=== PATIENT | female | born 1985 | race Caucasian/White ===

== ENCOUNTER 2017-01-26 08:31 | Emergency (ER) | payer BC ==
[2017-01-26 08:45] VITALS: BP 150/90; BMI 46.9
--- NOTE | 2017-01-26 09:16 | ED.ABDFE ---
HPI - Time seen Time seen: 09:13 - PCP Primary Care Physician: JAM - HPI Comment HPI Comment: GETTING WORSE. - Complaint Chief Complaint Doctors Comments: RLQ ABDOMINAL PAIN TIMES ONE DAY. PATIENT HAD CT DONE IN [facility]. VENTRAL HERNIA SEEN. PATIENT IS HURTING AREA OF THE HERNIA. NO FEVER. Chief Complaint:: PT C/O HAVING A BULGE TO HER LEFT LOWER QUAD AND THAT HER PRIMARY CARE HAS DONE A CT AND THINKS IT MAY BE A HERNIA.. PT HAS NOT GOT RESULTS AND C/O PAIN YESTERDAY MORNING.. - Nurses notes reviewed Nurses Notes Review: Yes - Source History Provided: Patient, Family Member - Mode of arrival Mode of Arrival: Ambulatory - Timing Onset of Chief Complaint: 01/25/17 Came on: Suddenly - Duration Duration: Days - Location Location: [facility] - Severity Severity: Moderate - Quality Quality: Sharp - Context Onset: Suddenly - Modifying Worsening Factors: Nothing Improving Factors: Nothing - Associated signs and symptoms Associated Signs and Symptoms: None PMH - PMH Past Medical History: No Past Medical History: Depression Past Surgical History: Yes Surgical History: , TELEPHONIC NURSE Surgery Past Surgical History Comment: C-SECTIONS TIMES 3, ENDOMETRIAL ABLATION..... - Family History History of Family Medical Conditions: No Family Medical History: Diabetes Mellitus - Social History Does patient currently use any type of tobacco product: No Have you used tobacco products in the last 12 months: No Type of Tobacco Use: None Does any household member use tobacco: No Alcohol Use: None Do you use any recreational Drugs:: No Lives With: Family Lives Where: Home - infectious screening In the last 2 months have you had wt loss of >10#?: NO Have you had fever, night sweats or hemotysis?: No Have you traveled outside the country in the last 6 months?: No Isolation: Standard ROS - Review of Systems Constitutional: No Symptoms Reported Eyes: No Symptoms Reported. negative: Eye Pain, Discharge ENTM: No Symptoms Reported. negative: Ear Pain, Nose Discharge, Nose Congestion , Throat Pain Respiratoy: No Symptoms Reported. negative: Productive Cough, Short of Breath, Wheezing Cardiovascular: No Symptoms Reported. negative: Chest Pain Gastrointestinal/Abdominal: Abdominal Pain Genitourinary: negative: Dysuria, Frequency, Hematuria Neurological: No Symptoms Reported Musculoskeletal: No Symptoms Reported Integumentary: No Symptoms Reported Hematologic/Lymphatic: No Symptoms Reported Endocrine: No Symptoms Reported All Other Systems: Reviewed and Negative PE - Vital Signs Vitals: Temperature 98.2 F Pulse Rate 119 Respiratory Rate 22 Blood Pressure 150/90 O2 Sat by Pulse Oximetry 98 - General Limitations: No Limitations General Appearance: Alert - Head Head Exam: Normal Inspection - Eyes Eye exam: Normal Appearance - ENT ENT Exam: Normal External Ear Exam - Neck Neck Exam: Normal Inspection - Chest Chest Inspection: Symmetric Chest Wall Rise - Respiratory Respiratory Exam: Normal Lung Sounds Bilat Respiratory Exam: Bilateral Clear to Auscultation - Cardiovascular Cardiovascular Exam: Regular Rate, Normal Rhythm, Normal Heart Sounds - Abdominal Exam Abdominal Exam: Normal Bowel Sounds, Soft, Tenderness Abdominal Tenderness: RLQ, Suprapubic - Rectal Rectal Exam: Deferred - Back Back Exam: Normal Inspection - Extremeties Extremities Exam: Normal Inspection - External Exam: Female: Deferred : Speculum Exam (Female): Deferred : Bimanual Exam (female): Deferred - Neurologic Neurological Exam: Alert, Oriented X3, CN II-XII Intact, Reflexes Normal - Psychiatric Psychiatric Exam: Anxious - Skin Skin Exam: Normal Color MDM - Additional Information Obtained From Additional information provided by: Family - Differential Diagnosis Differential Diagnosis- Considerations may include:: Bowel Obstruction, Gastritus/PUD, Ovarian cyst/torsion, Urinary tract infection Course - Treatment Treatment: SEE ORDERS. - Education/Counseling Education/Counseling: Patient, Family, Education Educated On: Diagnosis, Needs for Follow Up ROR - Labs Reviewed Laboratory Results Reviewed?: Yes Result Diagrams: 01/26/17 09:33 01/26/17 10:20 Laboratory: WBC 6.9 X10^3/uL (3.6-10.0) 01/26/17 09:33 RBC 4.17 X10^6/uL (3.5-5.4) 01/26/17 09:33 Hgb 15.3 g/dL (12.0-16.0) 01/26/17 09:33 Hct 44.4 % (36.0-47.0) 01/26/17 09:33 MCV 106.6 fL (80.0-100.0) H 01/26/17 09:33 MCH 36.7 pg (27.0-34.0) H 01/26/17 09:33 MCHC 34.5 g/dL (33.0-35.0) 01/26/17 09:33 RDW 13.7 % (11.6-16.5) 01/26/17 09:33 Plt Count 121 X10^3/uL (150.0-450.0) L 01/26/17 09:33 Plt Count Comment Decreased (ADEQUATE) A 01/26/17: MPV 10.6 fL (7.4-11.0) 01/26/17: Neut % 80.1 % (42.0-75.0) H 01/26/17: Lymph % 10.5 % (21.0-51.0) L 01/26/17 09: [place] % 7.1 % (0.0-13.0) 01/26/17: Eos % 1.6 % (0.9-2.9) 01/26/17 09: Baso % 0.7 % (0.2-1.0) 01/26/17: Neut # 5.5 x10^3/uL (2.2-4.8) H 01/26/17 09: Lymph # 0.7 X10^3/uL (1.3-2.9) L 01/26/17 09:33 [place] # 0.5 x10^3/uL (0.3-0.8) 01/26/17 09: Eos # 0.1 x10^3/uL (0.0-0.2) 01/26/17 09: Baso # 0.0 X10^3/uL (0.0-0.1) 01/26/17 09:33 Absolute Nucleated RBC 0.0 /100WBC 01/26/17 09:33 Plt Morphology Comment Normal (NORMAL) 01/26/17 09: RBC Morphology Abnormal (NORMAL) A 01/26/17 09:33 Anisocytosis Slight A 01/26/17 09:33 Macrocytosis Slight A 01/26/17 09:33 Sodium 141 mmol/L (136-145) 01/26/17 10:20 Corrected Sodium 141 mmol/L (136-145) 01/26/17 10:20 Potassium 4.8 mmol/L (3.5-5.1) 01/26/17 10:20 Chloride 104 mmol/L (98-107) 01/26/17 10:20 Carbon Dioxide 29.3 mmol/L (21-32) 01/26/17 10:20 BUN 7 mg/dL (7-18) 01/26/17 10:20 Creatinine 0.72 mg/dL (0.55-1.02) 01/26/17 10:20 Est GFR (MDRD) Af Amer > 60 (>60) 01/26/17 10:20 Est GFR (MDRD) Non-Af > 60 (>60) 01/26/17 10:20 Glucose 113 mg/dL (65-99) H 01/26/17 10:20 Calcium 9.7 mg/dL (8.5-10.1) 01/26/17 10:20 Corrected Calcium TNP 01/26/17 10:20 Total Bilirubin 1.50 mg/dL (0.2-1.0) H 01/26/17 10:20 AST 187 Units/L (15-37) H 01/26/17 10:20 ALT 186 Units/L (12-78) H 01/26/17 10:20 Alkaline Phosphatase 124 Units/L (46-116) H 01/26/17 10:20 Total Protein 8.0 g/dL (6.4-8.2) 01/26/17 10:20 Albumin 3.8 g/dL (3.4-5.0) 01/26/17 10:20 Globulin 4.2 g/dL (2.5-4.5) 01/26/17 10:20 Albumin/Globulin Ratio 0.9 Ratio (1.1-2.1) L 01/26/17 10:20 Amylase 41 Units/L (25-115) 01/26/17 10:20 Lipase 119 Units/L (73-393) 01/26/17 10:20 HCG, Qual Negative <10 mIU/mL 01/26/17 10:20 Specimen Type Clean catch urine 01/26/17 09:42 Urine Color Yellow (YELLOW) 01/26/17 09:42 Urine Appearance Hazy (CLEAR) 01/26/17 09:42 Urine pH 8.0 (5.0 - 8.0) 01/26/17 09:42 Ur Specific [place] 1.010 (1.000-1.030) 01/26/17 09:42 Urine Protein 1+ (NEGATIVE) 01/26/17 09:42 Urine Glucose (UA) Negative (NEGATIVE) 01/26/17 09:42 Urine Ketones Negative (NEGATIVE) 01/26/17 09:42 Urine Occult Blood 2+ (NEGATIVE) 01/26/17 09:42 Urine Nitrite Negative (NEGATIVE) 01/26/17 09:42 Urine Bilirubin Negative (NEGATIVE) 01/26/17 09:42 Urine Urobilinogen 1+ (NORMAL) 01/26/17 09:42 Ur Leukocyte Esterase 1+ (NEGATIVE) 01/26/17 09:42 Urine RBC 0-2 /HPF (NEGATIVE) 01/26/17 09:42 Urine WBC 3-5 /HPF (NEGATIVE) 01/26/17 09:42 Ur Squamous Epith Cells Moderate /HPF (NEGATIVE) 01/26/17 09:42 Urine Bacteria Trace /HPF (NEGATIVE) 01/26/17 09:42 Ur Culture Indicated? No/not indicated 01/26/17 09:42 - XRAY XRAY Findings: REPORT DISCUSS WITH PATIENT. - Diagnosis Discharge Problem: Abdominal pain - Discharge Plan Disposition: 01 HOME, SELF-CARE Condition: Stable - Follow ups/Referrals Follow ups/Referrals: RAJENDRA POLK [Primary Care Provider] - 01/27/17 - Instructions Instructions: Abdominal Pain, Adult, [id number] Additional Instructions: RETURN TO ED IF WORSE.
[2017-01-26 09:46] LABS: BILIRUBIN,URINE NEGATIVE (NEGATIVE); BLOOD/HEMOGLOBIN,URINE 2+ (NEGATIVE); GLUCOSE, URINE NEGATIVE (NEGATIVE); KETONES,URINE NEGATIVE (NEGATIVE); LEUKOCYTE ESTERASE ,URINE 1+ (NEGATIVE); NITRITES,URINE NEGATIVE (NEGATIVE); PROTEIN,URINE 1+ (NEGATIVE); UROBILINOGEN,URINE 1+ (NORMAL)
[2017-01-26 09:52] LABS: BASOPHILS % (AUTO) 0.7 % (0.2-1.0); EOSINOPHILS # (AUTO) 0.1 x10^3/uL (0.0-0.2); EOSINOPHILS % (AUTO) 1.6 % (0.9-2.9); HEMATOCRIT 44.4 % (36.0-47.0); HEMOGLOBIN 15.3 g/dL (12.0-16.0); LYMPHOCYTES # (AUTO) 0.7 X10^3/uL (1.3-2.9); LYMPHOCYTES % (AUTO) 10.5 % (21.0-51.0); MEAN CORPUSCULAR HEMOGLOBIN 36.7 pg (27.0-34.0); MEAN CORPUSCULAR HGB CONC 34.5 g/dL (33.0-35.0); MEAN CORPUSCULAR VOLUME 106.6 fL (80.0-100.0); MEAN PLATELET VOLUME 10.6 fL (7.4-11.0); MONOCYTES # (AUTO) 0.5 x10^3/uL (0.3-0.8); MONOCYTES % (AUTO) 7.1 % (0.0-13.0); NEUTROPHILS # (AUTO) 5.5 x10^3/uL (2.2-4.8); NEUTROPHILS % (AUTO) 80.1 % (42.0-75.0); RED BLOOD COUNT 4.17 X10^6/uL (3.5-5.4); RED CELL DISTRIBUTION WIDTH 13.7 % (11.6-16.5); WHITE BLOOD COUNT 6.9 X10^3/uL (3.6-10.0)
[2017-01-26 10:01] LABS: APPEARANCE,URINE HAZY (CLEAR); BACTERIA,URINE TRACE /HPF (NEGATIVE); COLOR,URINE YELLOW (YELLOW); RBC,URINE 0-2 /HPF (NEGATIVE); SQUAMOUS EPITHELIAL CELL,UR MODERATE /HPF (NEGATIVE)
[2017-01-26 10:02] LABS: PLATELET COUNT 121 X10^3/uL (150.0-450.0)
[2017-01-26 10:04] LABS: ANISOCYTOSIS SLIGHT; PLATELET MORPHOLOGY COMMENT NORMAL (NORMAL)
[2017-01-26 10:38] LABS: ALANINE AMINOTRANSFERASE 186 Units/L (12-78); ALBUMIN 3.8 g/dL (3.4-5.0); ALKALINE PHOSPHATASE 124 Units/L (46-116); AMYLASE 41 Units/L (25-115); ASPARTATE AMINO TRANSFERASE 187 Units/L (15-37); BLOOD UREA NITROGEN 7 mg/dL (7-18); CALCIUM 9.7 mg/dL (8.5-10.1); CARBON DIOXIDE 29.3 mmol/L (21-32); CHLORIDE 104 mmol/L (98-107); COR NA(FOR HYPERGLY) 141 mmol/L (136-145); CREATININE 0.72 mg/dL (0.55-1.02); GLUCOSE 113 mg/dL (65-99); LIPASE 119 Units/L (73-393); SODIUM 141 mmol/L (136-145); eGFR BLACK RACES > 60 (>60); eGFR NON BLACK RACES > 60 (>60)
[2017-01-26 11:04] LABS: SERUM PREGNANCY TEST, QUAL NEGATIVE <10 mIU/mL
--- NOTE | 2017-01-26 12:20 | RAD ---
Acute abdominal series Indication: Abdominal pain Comparison: none available Findings: The trachea is midline. The cardiac silhouette is unremarkable. The lungs are clear without focal infiltrate or effusion. The bony thorax is unremarkable. Flat and upright evaluation of the abdomen demonstrates a normal bowel gas pattern. No pathological soft tissue mass or calcification can be observed. The bony structures are grossly intact. IMPRESSION: 1. No acute cardiopulmonary disease. 2. No evidence for acute abdominal pathology identified. Reported By:
== END 2017-01-26 12:39 | disposition home or self-care (01) ==
LOC: ER 08:44
DX: R10.31 Right lower quadrant pain (principal)
CPT/HCPCS: 36415; 74022; 80053; 81001; 82150; 83690; 84703; 85025; 99283